=== PATIENT | female | born 1980 | race Two or more races ===

== ENCOUNTER 2017-10-03 04:10 | Emergency (ER) | payer OTHER ==
[~2017-10-03] VITALS: Ht 165.1 cm; Wt 48.9 kg
[2017-10-03 04:16] VITALS: BP 135/72
[2017-10-03] MEDS ORDERED: CLOT15CR73 TP (06:15)
== END 2017-10-03 06:38 | disposition home or self-care (01) ==
LOC: ER 04:10
DX: B35.3 Tinea pedis (principal); Z79.899 Other long term (current) drug therapy
CPT/HCPCS: 99283

== ENCOUNTER 2017-11-04 10:41 | Emergency (ER) | payer MEDICAID ==
[~2017-11-04] VITALS: Ht 162.6 cm; Wt 47.0 kg
[~2017-11-04 10:41] MED LIST: CLOT15CR73 TP
[2017-11-04 10:45] VITALS: BP 136/72
== END 2017-11-04 11:36 | disposition left against medical advice (07) ==
LOC: ER 10:41
DX: Z53.21 Procedure and treatment not carried out due to patient leaving prior to being seen by health care provider (principal)

== ENCOUNTER 2017-11-15 20:26 | Emergency (ER) | payer MEDICAID ==
[~2017-11-15] VITALS: Ht 165.1 cm; Wt 51.0 kg
[2017-11-15 20:37] VITALS: BP 158/88
[2017-11-15 21:27] LABS: CLARITY,URINE Clear (Clear); COLOR,URINE Yellow (Yellow); GLUCOSE, URINE Negative (Neg); KETONES,URINE Negative (Neg); LEUKOCYTE ESTERASE ,URINE Negative (Neg); NITRITES, URINE Negative (Neg); OCCULT BLOOD,URINE Negative (Neg); PROTEIN,URINE Negative (Neg)
[2017-11-15 21:31] LABS: UA COLLECTION TYPE CLN CATCH MIDSTREAM; URINE HCG NEGATIVE (NEG)
[2017-11-15 21:43] LABS: URINE AMPHETAMINE SCREEN NEGATIVE (Neg); URINE BARBITUATE SCREEN NEGATIVE (Neg); URINE BENZODIAZEPINES SCREEN NEGATIVE (Neg); URINE CANNABINOID SCREEN POSITIVE (Neg); URINE COCAINE SCREEN NEGATIVE (Neg); URINE METHADONE SCREEN NEGATIVE (Neg); URINE OPIATE SCREEN NEGATIVE (Neg); URINE PHENCYCLIDINE SCREEN NEGATIVE (Neg)
== END 2017-11-15 22:05 | disposition home or self-care (01) ==
LOC: ER 20:27
DX: R30.0 Dysuria (principal); R39.15 Urgency of urination; Z59.0 Homelessness; Z79.899 Other long term (current) drug therapy
CPT/HCPCS: 80305; 81003; 81025; 99284

== ENCOUNTER 2018-04-21 05:02 | Emergency (ER) | payer MEDICAID ==
[~2018-04-21] VITALS: Ht 165.1 cm; Wt 55.7 kg
[2018-04-21 05:09] VITALS: BP 112/79
== END 2018-04-21 06:01 | disposition left against medical advice (07) ==
LOC: ER 05:03
DX: M79.645 Pain in left finger(s) (principal); Z53.21 Procedure and treatment not carried out due to patient leaving prior to being seen by health care provider
CPT/HCPCS: 73140

== ENCOUNTER → 2018-07-01 | Emergency (ER) | payer MEDICAID ==
[~2018-07-01] VITALS: Ht 165.1 cm; Wt 54.0 kg
[2018-07-01 12:39] VITALS: BP 124/72
== END | disposition home or self-care (01) ==
LOC: ER 11:43
DX: M79.645 Pain in left finger(s) (principal); Z60.2 Problems related to living alone; Z59.0 Homelessness; Z79.899 Other long term (current) drug therapy
CPT/HCPCS: 73130; 99283